=== PATIENT | male | born 1950 | race Caucasian/White ===

== ENCOUNTER → 2017-11-02 | Outpatient (CLI) | payer OTHER ==
--- NOTE | 2017-11-02 16:41 | RAD ---
EXAM: Knee,Right 2 or More Views CLINICAL HISTORY: PAIN IN RIGHT KNEE COMPARISON STUDY: None TECHNICAL: 4 views of the right knee FINDINGS: There is moderate joint space loss of the lateral compartment but mild periarticular degenerative changes. There are [id number] degenerative changes of the patellofemoral joint with some osteochondral erosion on the patellar side of the joint. A small joint effusion is present. There is no fracture or dislocation. IMPRESSION: 1. 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 2. Small joint effusion. Electronically signed by: Navneet Badillo MD 11/02/2017 4:40 PM CDT
== END ==
LOC: RAD 10:30
PROVIDERS: ATTEND Nurse Practitioner Family
DX: M25.561 Pain in right knee (principal); M12.861 Other specific arthropathies, not elsewhere classified, right knee; M25.461 Effusion, right knee

== ENCOUNTER → 2018-10-08 | Outpatient (CLI) | payer OTHER | LOC: US 12:33 | PROVIDERS: ATTEND Nurse Practitioner Family | DX: I80.11 Phlebitis and thrombophlebitis of right femoral vein (principal); I80.231 Phlebitis and thrombophlebitis of right tibial vein; I80.201 Phlebitis and thrombophlebitis of unspecified deep vessels of right lower extremity ==